=== PATIENT | male | born 1965 | race Two or more races ===

== ENCOUNTER 2021-09-18 06:53 | Observation (INO) | payer OTHER ==
[2021-09-09 12:21] LABS: BASOPHILS % (AUTO) 0.5 % (0-1); EOSINOPHILS % (AUTO) 0.7 % (0-6); LYMPHOCYTES # (AUTO) 1.3 X10'3 (1.1-4.8); MEAN CORPUSCULAR HEMOGLOBIN 30.2 PG (27.0-31.0); MEAN CORPUSCULAR HGB CONC 33.9 g/dL (33.0-36.5); MEAN CORPUSCULAR VOLUME 89.1 FL (78-98); MEAN PLATELET VOLUME 7.8 FL (7.4-10.4); MONOCYTES # (AUTO) 0.4 X10'3 (0-0.9); MONOCYTES % (AUTO) 7.6 % (2-12); NEUTROPHILS # (AUTO) 3.1 X10'3 (1.8-7.7); NEUTROPHILS % (AUTO) 64.2 % (42-75); PRE OP HEMATOCRIT 44.3 % (42.0-52.0); PRE OP HEMOGLOBIN 15.1 g/dL (14.0-17.9); PRE OP PLATELET COUNT 264 X10'3 (140-440); RED BLOOD COUNT 4.98 X10'6 (4.70-6.10); RED CELL DISTRIBUTION WIDTH 12.8 % (11.5-14.5)
[2021-09-09 12:52] LABS: ALBUMIN 3.9 G/DL (3.4-5.0); ALKALINE PHOSPHATASE 66 IU/L (46-116); BLOOD UREA NITROGEN 14 MG/DL (7-18); BUN/CREATININE RATIO 12.5 (5.4-32.0); CALCIUM 8.9 MG/DL (8.5-10.1); CHLORIDE 104 MMOL/L (99-107); CREATININE 1.12 MG/DL (0.60-1.10); PRE OP ALT 36 U/L (30-65); PRE OP ANION GAP 6 (8-16); PRE OP AST 32 U/L (10-37); PRE OP BILIRUB, TOTAL 0.5 MG/DL (0.0-1.0); PRE OP GLUCOSE 87 MG/DL (70-104); PRE OP POTASSIUM 4.2 MMOL/L (3.4-5.1); PRE OP SODIUM 139 MMOL/L (135-145); TOTAL CARBON DIOXIDE 29.1 MMOL/L (24-32); eGFR 68 ML/MIN
[2021-09-18] VITALS (21 sets, daily range): BP systolic 109–147; BP diastolic 63–106
[~2021-09-18] VITALS: Ht 167.6 cm; Wt 78.1 kg
[~2021-09-18 06:53] MED LIST: ASPI81TA52 PO; CLON-568 PO; EVOL140P3 SUBCUT; PRAV20TA4 PO; cefazolin/dext.iso 2gm/50ml IV ONE; famotidine 20mg tablet PO ONE; ringers solution, lacted 1,000 ML IV SCH
[2021-09-18] MEDS ORDERED: ROPIVAcaine 0.2%/PF PUMP/bolus 545 ML INTERSCALE SCH (08:55)
[2021-09-18] MEDS ORDERED: morphine 4 MG/ML inj SYRINge IV PRN (08:55)
[2021-09-18] MEDS ORDERED: ROPIVAcaine 0.2% (10 MG/5 ML) BOLUS INJECTION INTERSCALE PRN (08:55)
[2021-09-18] MEDS ORDERED: proCHLORperazine 10 MG/2 ml inj IV PRN (08:55)
[2021-09-18] MEDS ORDERED: ringers solution, lacted 1,000 ML IV SCH (08:55)
[2021-09-18] MEDS ORDERED: meperidine/PF 25mg/ml syringe IV PRN ×3 (08:55)
[2021-09-18] MEDS ORDERED: morphine 2 MG/ML inj. syringe IV PRN (08:55)
[2021-09-18] MEDS ORDERED: ondansetron/PF 4mg/2ml inj IV PRN ×2 (08:55→14:15)
[2021-09-18] MEDS ORDERED: fentaNYL/PF 50MCG/1 ML 2ML syringe ONE (10:39)
[2021-09-18] MEDS ORDERED: MIDAZolam 1 MG/ML 5ML VIAL ONE (10:39)
[2021-09-18] MEDS ORDERED: propofol inj 20 ML IV ONE (11:15)
[2021-09-18] MEDS ORDERED: LIDOcaine 2% (20mg/ml) 5ml vial ONE (11:15)
[2021-09-18] MEDS ORDERED: ondansetron/PF 4mg/2ml inj ONE (11:15)
[2021-09-18] MEDS ORDERED: dexamethasone sod phosphate 4mg/ml inj. ONE (11:15)
[2021-09-18] MEDS ORDERED: ketorolac trometh. 30mg/ml inj. ONE (12:36)
[2021-09-18] MEDS ORDERED: ROPIVAcaine 0.5% (5mg/ml) 30ml vial ONE (12:36)
[2021-09-18] MEDS ORDERED: VANCOMYCIN 1,500MG inj. 1,500 MG in normal saline 500ml IV soln 500 ML IV ONE (12:45)
[2021-09-18] MEDS ORDERED: meperidine/PF 25mg/ml syringe ONE (13:01)
--- NOTE | 2021-09-18 14:09 | NUR ---
Received from OR via HOSPITAL BED, accompanied by Anesthesiologist DR GUILLAUEM and report given by Anesthesiolgist. PT PRESENTS WITH 20G LEFT HAND, DRESSING AND WRAP WITH POWDER PACK ON ROGHT SHOULDER CLEAN DRY AND INTACT. ORAL AIRWAY PLACED BY SR GUILLAUME. VSS. Addendum: 09/18/21 at 1436 by Elizabeth Arevalo RN, RN Amended: Links added.
[2021-09-18] MEDS ORDERED: bisacodyl 10mg suppository rectal RC PRN (14:15)
[2021-09-18] MEDS ORDERED: oxyCODONE IR 5mg (immed. release) tablet PO PRN ×2 (14:15)
[2021-09-18] MEDS ORDERED: clonazePAM 1mg tablet PO PRN (14:15)
[2021-09-18] MEDS ORDERED: HYDROmorphone inj. 0.5 MG/0.5 ML DISP.SYRIN IV PRN (14:15)
[2021-09-18] MEDS ORDERED: HYDROmorphone 1 mg/ml syringe IV PRN (14:15)
[2021-09-18] MEDS ORDERED: acetaminophen 325mg tablet PO PRN (14:15)
[2021-09-18] MEDS ORDERED: diphenhydrAMINE 25mg capsule PO PRN ×2 (14:15)
[2021-09-18] MEDS ORDERED: magnesium hydroxide 30ml (MOM) UD suspension PO PRN (14:15)
--- NOTE | 2021-09-18 14:15 | NUR ---
ORAL AIRWAY REMOVED. PT RESPIRATIONS 18 EVEN AND UNLABORED, SPO2 100% ON 10L WITH MASK. Addendum: 09/18/21 at 1436 by Elizabeth Arevalo RN, RN Amended: Links added.
--- NOTE | 2021-09-18 14:46 | NUR ---
Received report from recovery but pt not ready to come to floor at this time.
--- NOTE | 2021-09-18 15:49 | NUR ---
Report called to receiving nurse MORELIA OLSON. Transferred via HOSPITAL BED TO ROOM 357A. PT ACCOMPANIED PT TO ROOM. 2 PT Belonging BAGS TO ROOM 357A. PT BED IN LOW LOCKED POSITION OF COMFORT, CALL LIGHT WITHIN REACH. Special Issues communicated to receiving nurse. Addendum: 09/18/21 at 1708 by Elizabeth Arevalo RN, RN Amended: Links added.
--- NOTE | 2021-09-18 16:30 | NUR ---
Received Pt from recovery via bed. at bedside to translate for guyanese speaking Pt. Denies pain. VSS. discussed POC with verbal understanding.
[2021-09-18] MEDS: potassium cl 20mEq in 1/2 NS 1,000 ML IV SCH (16:55)
[2021-09-18] MEDS: ceFAZolin/D5W- 1GM premix 50 ML IV SCH (18:23)
--- NOTE | 2021-09-18 18:33 | NUR ---
Problems reprioritized. Patient report given, questions answered & plan of care reviewed with WESLEY Smith.
--- NOTE | 2021-09-18 18:47 | NUR ---
Patient in room [facility]. I have received report from MORELIA OLSON and had the opportunity to ask questions and assume patient care.
[2021-09-18] MEDS ORDERED: vancomycin/NS 1 GM ADD-VANTAGE 250 ML IV SCH (20:00)
[2021-09-18] MEDS: acetaminophen 325mg tablet PO SCH (20:07)
[2021-09-18] MEDS ORDERED: sennosides 8.6mg tablet PO SCH (21:00)
[2021-09-19] VITALS: BP 124/69
[2021-09-19] MEDS: ceFAZolin/D5W- 1GM premix 50 ML IV SCH (00:01)
[2021-09-19] MEDS: potassium cl 20mEq in 1/2 NS 1,000 ML IV SCH ×2 (00:01→06:15)
[2021-09-19] MEDS: acetaminophen 325mg tablet PO SCH ×2 (02:09→09:35)
[2021-09-19 04:00] VITALS: BP 122/76
--- NOTE | 2021-09-19 06:36 | NUR ---
Problems reprioritized. Patient report given, questions answered & plan of care reviewed with RAJNI OLSON.
[2021-09-19 06:46] LABS: ANION GAP 11 (8-16); CHLORIDE 107 MMOL/L (99-107); POTASSIUM 4.5 MMOL/L (3.5-5.1); SODIUM 140 MMOL/L (135-145); TOTAL CARBON DIOXIDE 22.4 MMOL/L (24-32)
[2021-09-19 06:53] LABS: BASOPHILS % (AUTO) 0 % (0-1); EOSINOPHILS % (AUTO) 0 % (0-6); HEMATOCRIT 35.4 % (42.0-52.0); HEMOGLOBIN 12.4 g/dl (14.0-17.9); LYMPHOCYTES % (AUTO) 9.6 % (21-51); MEAN CORPUSCULAR HEMOGLOBIN 31.2 PG (27.0-31.0); MEAN CORPUSCULAR VOLUME 89.3 FL (78-98); MEAN PLATELET VOLUME 8.1 FL (7.4-10.4); MONOCYTES % (AUTO) 9.9 % (2-12); NEUTROPHILS % (AUTO) 80.5 % (42-75); PLATELET COUNT 210 X10'3 (140-440); RED BLOOD COUNT 3.97 X10'6 (4.70-6.10); RED CELL DISTRIBUTION WIDTH 12.7 % (11.5-14.5); WHITE BLOOD COUNT 9.9 X10'3 (4.5-11.0)
[2021-09-19] MEDS ORDERED: atorvastatin 10mg tablet PO SCH (08:00)
[2021-09-19] MEDS: EVOLOCUMAB SQ SCH ×2 (08:00→09:46)
[2021-09-19] MEDS ORDERED: aspirin 81mg, enteric-coated 1 TAB TABLET.DR PO SCH (08:00)
[2021-09-19] MEDS ORDERED: aspirin 325mg tablet PO SCH (08:30)
[2021-09-19] MEDS ORDERED: celeCOXIB 100mg capsule PO SCH (20:00)
[2021-09-20] MEDS ORDERED: acetaminophen 325mg tablet PO PRN (14:15)
== END 2021-09-19 11:15 | disposition home or self-care (01) ==
LOC: PAS 06:53 → SUR 3N 14:16
PROVIDERS: ADMIT Orthopaedic Surgery; ATTEND Orthopaedic Surgery
DX: M75.01 Adhesive capsulitis of right shoulder (principal); M75.111 Incomplete rotator cuff tear or rupture of right shoulder, not specified as traumatic; Z20.822 Contact with and (suspected) exposure to COVID-19
CPT/HCPCS: 23472; 36415; 80051; 80053; 82948; 85025; 93005; 96361; 96365; 96366; 96367; 97110; 97530; C1776; G0378; J0690; J1100; J1885; J2175; J2250; J2405; J2704; J2795; J3010; J3370; J3480; J3490; J7120; U0003; U0005; A4565; A4618; A6449; A7000